=== PATIENT | female | born 1985 | race African-American/Black ===

== ENCOUNTER 2017-05-16 16:46 | Emergency (ER) | payer MEDICAID ==
[~2017-05-16] VITALS: Ht 152.4 cm; Wt 104.0 kg
[~2017-05-16 16:46] MED LIST: ACET-2178 PO; IBUP-1510 PO
[2017-05-17] MEDS ORDERED: ALBUTEROL (0.083%) 2.5MG/3ML NEB HHN STA (00:42)
[2017-05-17] MEDS ORDERED: PREDNISONE 20MG TABLET PO STA (00:42)
[2017-05-17] MEDS ORDERED: IPRATROPIUM BROMIDE (0.02%) 0.5MG/2.5ML NEB HHN STA (00:42)
[2017-05-17] MEDS ORDERED: IBUPROFEN 800MG TABLET PO ONE (02:00)
[2017-05-17 03:15] VITALS: BP 155/88
== END 2017-05-17 03:44 | disposition home or self-care (01) ==
LOC: ER 16:46
DX: J45.901 Unspecified asthma with (acute) exacerbation (principal); Z88.0 Allergy status to penicillin; Z88.2 Allergy status to sulfonamides; Z98.890 Other specified postprocedural states
CPT/HCPCS: 71010; 81025; 94640; 99283; J7512; J7611

== ENCOUNTER 2017-12-20 20:04 | Emergency (ER) | payer MEDICAID ==
[~2017-12-20] VITALS: Ht 152.4 cm; Wt 100.0 kg
[~2017-12-20 20:04] MED LIST changes: -IBUP-1510 PO; +IBUP-2030 PO
[2017-12-20] MEDS ORDERED: IBUPROFEN 800MG TABLET PO ONE (23:15)
[2017-12-20] MEDS ORDERED: ALBUTEROL (0.083%) 2.5MG/3ML NEB HHN ONE (23:15)
[2017-12-20 23:50] VITALS: BP 167/101
== END 2017-12-21 00:56 | disposition home or self-care (01) ==
LOC: ER 21:15
DX: J06.9 Acute upper respiratory infection, unspecified (principal); I10 Essential (primary) hypertension; F17.200 Nicotine dependence, unspecified, uncomplicated; Z88.3 Allergy status to other anti-infective agents; Z88.2 Allergy status to sulfonamides; Z87.730 Personal history of (corrected) cleft lip and palate; Z98.890 Other specified postprocedural states; Z88.0 Allergy status to penicillin
CPT/HCPCS: 71045; 81025; 87804; 94640; 99285; J7611

== ENCOUNTER 2017-12-26 09:12 | Emergency (ER) | payer MEDICAID ==
[~2017-12-26] VITALS: Ht 152.4 cm; Wt 100.0 kg
[2017-12-26] MEDS ORDERED: FLUTICASONE PROPIONATE 50MCG/SPRAY BOTTLE BOTHNSTRLS STA (13:34)
[2017-12-26] MEDS ORDERED: PREDNISONE 20MG TABLET PO STA (13:34)
[2017-12-26] MEDS ORDERED: IPRATROPIUM BROMIDE (0.02%) 0.5MG/2.5ML NEB HHN STA (13:34)
[2017-12-26] MEDS ORDERED: ALBUTEROL (0.083%) 2.5MG/3ML NEB HHN STA (13:34)
[2017-12-26 14:03] LABS: BASOPHILS % 0.8 % (0.0-2.0); HEMATOCRIT. 39.3 % (36.0-48.0); HEMOGLOBIN. 12.5 g/dL (12.0-16.0); LYMPHOCYTES % 26.2 % (20.0-50.0); MEAN CORPUSCULAR HEMOGLOBIN 28.2 pg (28.0-32.0); MEAN CORPUSCULAR VOLUME 88.9 fL (81.0-99.0); MEAN PLATELET VOLUME 8.5 fl (7.4-10.4); MONOCYTES % 7.4 % (2.0-8.0); NEUTROPHILS % 62.6 % (40.0-76.0); PLATELET 275 x1000/uL (130-400); RED BLOOD CELL COUNT 4.42 mill/uL (4.2-5.4); RED CELL DISTRIBUTION WIDTH 16.4 % (11.6-14.6)
[2017-12-26 14:07] LABS: PROTHROMBIN TIME 10.7 sec (9.4-11.6)
[2017-12-26 14:16] LABS: CHLORIDE 109 mEq/L (98-107); TROPONIN I < 0.02 ng/mL (0.00-0.04)
[2017-12-26 16:12] VITALS: BP 117/78
== END 2017-12-26 16:23 | disposition home or self-care (01) ==
LOC: ER 09:31
DX: J45.901 Unspecified asthma with (acute) exacerbation (principal); B34.9 Viral infection, unspecified; Z88.3 Allergy status to other anti-infective agents; Z88.0 Allergy status to penicillin; Z88.2 Allergy status to sulfonamides; Z98.890 Other specified postprocedural states
CPT/HCPCS: 36415; 71045; 80053; 83880; 84484; 85025; 85610; 93005; 99285; J7512; J7611; Z7610

== ENCOUNTER 2019-12-29 07:35 | Emergency (ER) | payer MEDICAID ==
[~2019-12-29] VITALS: Ht 152.4 cm; Wt 113.0 kg
[~2019-12-29 07:35] MED LIST changes: -ACET-2178 PO; +TOPUD PO
[2019-12-29] MEDS ORDERED: OXYCODONE HCL/ACETAMINOPHEN 5/325MG TABLET PO ONE (10:45)
[2019-12-29 11:42] VITALS: BP 170/108
== END 2019-12-29 11:45 | disposition home or self-care (01) ==
LOC: ER 07:59
DX: M25.552 Pain in left hip (principal); M25.562 Pain in left knee; I10 Essential (primary) hypertension; Z91.81 History of falling
CPT/HCPCS: 73502; 73560; 99283